=== PATIENT | female | born 1945 | race Caucasian/White ===

== ENCOUNTER 2016-03-20 10:53 | Emergency (ER) | payer OTHER ==
[~2016-03-20] VITALS: Ht 154.9 cm; Wt 50.6 kg
[~2016-03-20 10:53] MED LIST: ALDACTONE100 MG PO; ALDACTONE50 MG PO; ALENDRONATE SODI5 MG PO; ALPRAZOLAM0.25 M2 PO; AMLODIPINE BESYL5 MG PO; AMOXICILLIN500 MG PO; ASCORBIC ACID500 M3 PO; ASPIRIN325 MG PO; BUSPIRONE HCL5 MG PO; CALCIUM 600 +1 EAC9 PO; CEFADROXIL500 M1 PO; CIPRO500 MG PO; CIPRO750 MG PO; CORGARD20 MG PO; CRESTOR10 MG PO; CYANOCOBALAM1000 MCG PO; DAILY VALUE1 EACH PO; DAILY VITE1 EAC1 PO; DAPSONE100 MG PO; DELTASONE20 M1 PO; ESCITALOPRAM OX10 MG PO; FEOSOL325 MG PO; FEROSUL325 MG PO; FERROUS SULFAT134 MG PO; FERROUS SULFAT325 M2 PO; FLEXERIL10 MG PO; FOLIC ACID1 MG PO; FOSAMAX5 MG PO; FOSAMAX70 M1 PO; FUROSEMIDE20 MG PO; FUROSEMIDE40 MG PO; IRON PO; IRON325 M1 PO; KLOR-CON-EF 2525 MEQ PO; LASIX20 MG PO; LASIX40 MG PO; LASIX80 MG PO; LEVAQUIN750 MG PO; LEVOFLOXACIN500 MG PO; LEXAPRO10 MG PO; LO-DOSE ASPIRIN81 M2 PO; MUPIROCIN22 GM TP; MYCOPHENOLIC A180 MG PO; MYCOPHENOLIC A360 MG PO; NADOLOL20 MG PO; NAPROSYN500 MG PO; PANTOPRAZOLE SO40 MG PO; POTASSIUM 25 M25 MEQ PO; POTASSIUM CL 225 MEQ PO; PREDNISONE10 M2 PO; PROGRAF0.5 MG PO; PROGRAF1 MG PO; PROTONIX40 MG PO; RECLAST5 MG/100 M IV; SPIRONOLACTONE100 MG PO; SPIRONOLACTONE50 MG PO; TACROLIMUS ANH0.5 MG PO; THERAGRAN1 TABLET PO; TRAMADOL HCL50 MG PO; TYLENOL REGULA325 MG PO; URSODIOL300 MG PO; VALGANCICLOVIR450 MG PO; VALIUM5 MG PO; VITAMIN A10000 UNIT PO; VITAMIN B-122000 MCG PO; VITAMIN C500 M1 PO; Vitamin B-12 PO; [UNRECOGNIZED DRUG - OTHER] PO
[2016-03-20 12:13] LABS: EOSINOPHIL (%) 3.4 % (0-5); EOSINOPHIL COUNT 0.2 K/uL (0-0.3); HEMATOCRIT 35.2 % (36.0-46.0); LYMPHOCYTE COUNT 0.5 K/uL (1.0-2.8); MCH 29.6 PG (29.0-34.0); MCHC 33.5 G/DL (30.0-36.0); MCV 88.2 FL (83-99); MEAN PLAT.VOLUME 12.2 uM^3 (9.5-12.4); MONOCYTE (%) 7.1 % (3-12); MONOCYTE COUNT 0.4 K/uL (0-0.8); NEUTROPHIL (%) 80.5 % (45-76); NEUTROPHIL COUNT 4.7 K/uL (1.8-6.4); PLATELET COUNT 91 K/uL (156-360); RBC DIS.WIDTH-CV 14.3 % (11.8-14.6); RBC DIS.WIDTH-SD 45.6 % (39-53); RED BLOOD COUNT 3.99 M/uL (3.80-5.20); WHITE BLOOD COUNT 5.8 K/uL (4.1-10.2)
[2016-03-20 12:15] LABS: ADD MIUA? YES; BILIRUBIN SMALL; BLOOD MODERATE; COLOR DK YELLOW ((YELLOW)); GLUCOSE (STRIP) NEGATIVE; KETONES NEGATIVE; LEUKOCYTES NEGATIVE; NITRITE NEGATIVE; PROTEIN (STRIP) >=300; SPECIFIC GRAVITY 1.027 (1.000-1.030); UROBILINOGEN 0.2 MG/DL (0.2-1.0)
[2016-03-20 12:23] LABS: CHLORIDE 107 mEq/L (99-109); POTASSIUM 4.1 mEq/L (3.7-5.4); SODIUM 137 mEq/L (136-147)
[2016-03-20 12:25] LABS: GLUCOSE 121 mg/dL (70-99)
[2016-03-20 12:27] LABS: ANION GAP 9 MEQ/L (2-14)
[2016-03-20 12:29] LABS: CASTS PRESENT /LPF; EPITHELIAL CELLS 1+; FINE GRANULAR CASTS 0-5 /LPF; HYALINE CASTS 15-20 /LPF
[2016-03-20 12:29] LABS: GFR ESTIMATE (CALCULATED) > 59 mL/min/
[2016-03-20 12:30] LABS: AMORPHOUS URATES CRYSTALS 1+; BACTERIA NONE SEEN; CRYSTALS PRESENT; MUCUS NONE SEEN; RED BLOOD CELLS 0-5 /HPF (0-5); UCUL ADDED? NO; WHITE BLOOD CELLS RARE /HPF (0-5)
[2016-03-20 12:30] LABS: UREA NITROGEN (BUN) 31 mg/dL (9-23)
[2016-03-20] MEDS ORDERED: NAPROXEN500 MG PO (13:12)
[2016-03-20] MEDS ORDERED: VALIUM2 MG PO (13:12)
[2016-03-20 13:24] VITALS: BP 167/86
== END 2016-03-20 13:29 | disposition home or self-care (01) ==
LOC: EXP 10:53 → EME 10:53 → EXP 13:29
PROVIDERS: Physician Assistant
DX: M43.6 Torticollis (principal); I10 Essential (primary) hypertension; Z88.2 Allergy status to sulfonamides
CPT/HCPCS: 72125; 80048; 81003; 85025; 99281; 99284; J1885

== ENCOUNTER 2017-07-14 11:48 | Emergency (ER) | payer OTHER ==
[~2017-07-14] VITALS: Ht 157.5 cm; Wt 61.4 kg
[~2017-07-14 11:48] MED LIST changes: +NAPROXEN500 MG PO; +VALIUM2 MG PO
[2017-07-14 13:13] LABS: HEMOGLOBIN 11.4 G/DL (11.9-15.5); MCH 28.9 PG (29.0-34.0); MCHC 32.6 G/DL (30.0-36.0); MCV 88.8 FL (83-99); PLATELET COUNT 83 K/uL (156-360); RBC DIS.WIDTH-CV 14.6 % (11.8-14.6); RBC DIS.WIDTH-SD 47.8 % (39-53); RED BLOOD COUNT 3.94 M/uL (3.80-5.20); WHITE BLOOD COUNT 3.9 K/uL (4.1-10.2)
[2017-07-14 13:28] LABS: ALBUMIN 4.2 g/dL (3.2-4.8)
[2017-07-14 13:29] LABS: CHLORIDE 112 mEq/L (99-109); POTASSIUM 5.1 mEq/L (3.7-5.4); SODIUM 142 mEq/L (136-147)
[2017-07-14 13:31] LABS: GLUCOSE 80 mg/dL (70-99); TOTAL PROTEIN 6.7 g/dL (6.4-8.3)
[2017-07-14 13:33] LABS: TOTAL BILIRUBIN 0.5 mg/dL (0.0-1.0)
[2017-07-14 13:34] LABS: ALKALINE PHOSPHATASE 374 IU/L (3-129)
[2017-07-14 13:35] LABS: GFR ESTIMATE (CALCULATED) 58 mL/min/
[2017-07-14 13:36] LABS: AST (GOT) 100 IU/L (2-34); UREA NITROGEN (BUN) 30 mg/dL (9-23)
[2017-07-14 13:37] LABS: ALT (GPT) 219 IU/L (3-49)
[2017-07-14 13:40] LABS: APPEARANCE CLEAR ((CLEAR)); BILIRUBIN NEGATIVE; BLOOD NEGATIVE; COLOR YELLOW ((YELLOW)); GLUCOSE (STRIP) NEGATIVE; KETONES NEGATIVE; LEUKOCYTES NEGATIVE; NITRITE NEGATIVE; PROTEIN (STRIP) 30; SPECIFIC GRAVITY 1.024 (1.000-1.030); UCUL ADDED? NO; UROBILINOGEN 0.2 MG/DL (0.2-1.0)
[2017-07-14 14:39] LABS: ACETAMINOPHEN (TYLENOL) < 10 mcg/mL (10-30)
[2017-07-14 17:28] VITALS: BP 120/67
== END 2017-07-14 17:28 | disposition home or self-care (01) ==
LOC: EME 11:48
PROVIDERS: Physician Assistant
DX: K75.9 Inflammatory liver disease, unspecified (principal); T36.1X5A Adverse effect of cephalosporins and other beta-lactam antibiotics, initial encounter; Z85.05 Personal history of malignant neoplasm of liver; Z94.4 Liver transplant status; Z85.828 Personal history of other malignant neoplasm of skin; K21.9 Gastro-esophageal reflux disease without esophagitis; Z90.49 Acquired absence of other specified parts of digestive tract; Z79.82 Long term (current) use of aspirin; Z88.2 Allergy status to sulfonamides
CPT/HCPCS: 76705; 80053; 81003; 85027; 85610; 93976; 99281; 99285; G0480